=== PATIENT | female | born 1975 | race Caucasian/White ===

== ENCOUNTER 2016-05-31 09:04 | Emergency (ER) | payer OTHER ==
[2016-05-31 10:24] LABS: ABSOLUTE LYMPHOCYTES (AUTO) 1.2 10^3/uL (0.5-4.7); ABSOLUTE MONOCYTES (AUTO) 1.3 10^3/uL (0.1-1.4); ABSOLUTE NEUT (AUTO) 9.7 10^3/uL (1.7-8.2); BASOPHILS % (AUTO) 0.2 % (0-2); EOSINOPHILS % (AUTO) 0.1 % (0-6); HEMATOCRIT 36.1 % (36.0-47.0); HEMOGLOBIN 12.2 g/dL (12.0-15.5); HGB HCT DIFFERENCE 0.5; LYMPHOCYTES % (AUTO) 9.9 % (13-45); MEAN CORPUSCULAR HEMOGLOBIN 29.1 pg (27.0-33.4); MEAN CORPUSCULAR HGB CONC 33.8 g/dL (32.0-36.0); MEAN CORPUSCULAR VOLUME 86 fl (80-97); MONOCYTES % (AUTO) 10.8 % (3-13); RED BLOOD COUNT 4.19 10^6/uL (3.72-5.28); RED CELL DISTRIBUTION WIDTH 14.1 % (11.5-14.0); WHITE BLOOD COUNT 12.2 10^3/uL (4.0-10.5)
[2016-05-31] MEDS ORDERED: ASPIRIN 81 MG TABLET, CHEWABLE PO ONE (10:36)
[2016-05-31 10:37] LABS: ALANINE AMINOTRANSFERASE 51 U/L (9-52); ALBUMIN 3.8 g/dL (3.5-5.0); ALKALINE PHOSPHATASE 69 U/L (38-126); ANION GAP 10 (5-19); ASPARTATE AMINO TRANSFERASE 40 U/L (14-36); BILIRUBIN,TOTAL 0.9 mg/dL (0.2-1.3); BLOOD UREA NITROGEN 10 mg/dL (7-20); CARBON DIOXIDE 33 mmol/L (22-30); CHLORIDE 94 mmol/L (98-107); CREATININE RESULT 0.53 mg/dL (0.52-1.25); GLUCOSE 117 mg/dL (75-110); POTASSIUM 3.8 mmol/L (3.6-5.0); SODIUM 137.4 mmol/L (137-145)
[2016-05-31 10:38] LABS: APPEARANCE,URINE CLEAR; BILIRUBIN,URINE NEGATIVE (NEGATIVE); GLUCOSE, URINE NEGATIVE (NEGATIVE); KETONES,URINE NEGATIVE (NEGATIVE); LEUKOCYTE ESTERASE,URINE LARGE (NEGATIVE); NITRITE,URINE NEGATIVE (NEGATIVE); PROTEIN,URINE NEGATIVE (NEGATIVE); URINE SPECIFIC GRAVITY 1.004; UROBILINOGEN,URINE NEGATIVE mg/dL (<2.0)
[2016-05-31 11:00] LABS: CREATINE KINASE MB 4.75 ng/mL (<4.55); TROPONIN I < 0.012 ng/mL
--- NOTE | 2016-05-31 12:20 | EKG REPORT ---
SEVERITY:- ABNORMAL ECG - SINUS RHYTHM NONSPECIFIC INTRAVENTRICULAR CONDUCTION DELAY INFERIOR Q WAVES, POSSIBLE INFERIOR MD VS PROBABLY NORMAL VARIATION : Confirmed by: Linda Reynoso 31-May-2016 12:19:58
--- NOTE | 2016-05-31 13:14 | ER Document Report ---
ED General - General Chief Complaint: Pain With Urination Stated Complaint: POSSIBLE UTI Mode of Arrival: Ambulatory Information source: Patient Notes: 40 y/o F presents to ED with multiple complaints. Pt reports onset of cough/ congestion/flu-like symptoms approximately 1 month ago. States URI symptoms resolved but cough has persisted. Reports associated burning-type substernal pain with cough and sob. States cough is productive with small amount of white and greenish sputum. Also reports dysuria and fever over the last 3 days with Tmax at home of 102.0. States feels like her previous UTI. Denies chest pain without cough, n/v, hemoptysis, vaginal bleeding or discharge. TRAVEL OUTSIDE OF THE [place] IN LAST 30 DAYS: No - HPI Onset/Duration: Persistent, Worse Quality of pain: Burning Severity: Mild Pain Level: 2 Similar symptoms previously: Yes Recently seen / treated by doctor: No - Related Data Allergies/Adverse Reactions: albuterol [Albuterol] Allergy (Verified 05/31/16 09:22) prednisone [Prednisone] Allergy (Verified 05/31/16 09:22) Past Medical History - General Information source: Patient, Relative - Social History Smoking Status: Never Smoker Frequency of alcohol use: None Drug Abuse: None Lives with: Family Family History: Reviewed & Not Pertinent - Past Medical History Cardiac Medical History: Reports: Hx Hypertension Pulmonary Medical History: Reports: Hx Asthma Endocrine Medical History: Reports: Hx Hypothyroidism GI Medical History: Reports: Hx Gastroesophageal Reflux Disease Past Surgical History: Reports: Hx Section - x3, Hx Tubal Ligation - Immunizations Hx Diphtheria, Pertussis, Tetanus Vaccination: Yes Review of Systems - Review of Systems Constitutional: See HPI EENT: No symptoms reported Cardiovascular: See HPI Respiratory: See HPI Gastrointestinal: No symptoms reported Genitourinary: See HPI Female Genitourinary: No symptoms reported Musculoskeletal: No symptoms reported Skin: No symptoms reported Hematologic/Lymphatic: No symptoms reported Neurological/Psychological: No symptoms reported -: Yes All other systems reviewed and negative Physical Exam - Vital signs Vitals: Temp Pulse Resp BP Pulse Ox 98.7 F 96 20 151/77 H 97 05/31/16 09:19 05/31/16 09:19 05/31/16 09:19 05/31/16 09:19 05/31/16 09:19 Interpretation: Normal - General General appearance: Appears well, Alert In distress: None - HEENT Head: Normocephalic, Atraumatic Eyes: Normal Pupils: PERRL - Respiratory Respiratory status: No respiratory distress. No: Labored, Tachypnea Chest status: Nontender, Pain with cough Breath sounds: Normal - CTAB, Nonproductive cough. No: Rhonchi, Wheezing Chest palpation: Normal - Cardiovascular Rhythm: Regular Heart sounds: Normal auscultation Murmur: No Pulses: Normal: Radial Normal capillary refill: Yes - Abdominal Inspection: Normal, Morbidly Obese Distension: No distension Bowel sounds: Normal Tenderness: Nontender Organomegaly: No organomegaly - Back Back: Normal, Nontender - Extremities General upper extremity: Normal inspection, Nontender, Normal color, Normal ROM , Normal strength, Normal temperature. No: Tender, Edema General lower extremity: Normal inspection, Nontender, Normal color, Normal ROM , Normal strength, Normal temperature, Normal weight bearing. No: Tender, Edema , Zain's sign - Neurological Neuro grossly intact: Yes Cognition: Normal Orientation: AAOx4 [place] Coma Scale Eye Opening: Spontaneous [place] Coma Scale Verbal: Oriented [place] Coma Scale Motor: Obeys Commands [place] Coma Scale Total: 15 Speech: Normal Motor strength normal: LUE, RUE, LLE, RLE Sensory: Normal - Psychological Associated symptoms: Normal affect, Normal mood - Skin Skin Temperature: Warm Skin Moisture: Dry Skin Color: Normal Skin Turgor: Elastic Course - Re-evaluation Re-evalutation: 05/31/16 15:00 Patient hemodynamically stable, in no distress, afebrile. Chest x-ray shows cardiomegaly and probable vascular congestion without suggestion of pneumonia or other significant findings. Due to elevated d-dimer and patient history/risk factors patient presentation and findings were discussed with ED physician Dr. Ivey who recommends CTA chest to rule out PE. Due to patient's morbid obesity and body habitus there is no capability of obtaining CT scan, VQ scan, or MRI at this facility therefore [facility] and [facility] were contacted however they did not have bariatric capability at this time. Patient presentation and findings were discussed with hospitalist Dr. Lloyd who agrees to resume care of patient at this time and admit to telemetry observation unit. Findings and plan discussed with patient and who verbalized understanding and agree with plan. - Vital Signs Vital signs: Temp Pulse Resp BP Pulse Ox 98.4 F 96 28 H 130/81 H 92 05/31/16 16:51 05/31/16 09:19 05/31/16 16:01 05/31/16 16:01 05/31/16 15:57 - Laboratory Result Diagrams: 05/31/16 10:00 05/31/16 10:00 Laboratory results interpreted by me: 05/31/16 05/31/16 05/31/16 10:00 10:00 10:00 WBC 12.2 H RDW 14.1 H Seg Neutrophils % 79.0 H Lymphocytes % 9.9 L Absolute Neutrophils 9.7 H D-Dimer Chloride 94 L Carbon Dioxide 33 H Glucose 117 H AST 40 H Creatine Kinase CK-MB (CK-2) NT-Pro-B Natriuret Pep Ur Leukocyte Esterase LARGE H 05/31/16 05/31/16 05/31/16 10:00 10:00 10:00 WBC RDW Seg Neutrophils % Lymphocytes % Absolute Neutrophils D-Dimer 0.83 H Chloride Carbon Dioxide Glucose AST Creatine Kinase 286 H CK-MB (CK-2) 4.75 H NT-Pro-B Natriuret Pep Ur Leukocyte Esterase 05/31/16 10:00 WBC RDW Seg Neutrophils % Lymphocytes % Absolute Neutrophils D-Dimer Chloride Carbon Dioxide Glucose AST Creatine Kinase CK-MB (CK-2) NT-Pro-B Natriuret Pep 334 H Ur Leukocyte Esterase - Diagnostic Test Radiology reviewed: Image reviewed, Reports reviewed - EKG Interpretation by Me EKG shows normal: Sinus rhythm Rate: Normal When compared to previous EKG there are: Previous EKG unavailable Discharge - Discharge Clinical Impression: SOB (shortness of breath), Dysuria Condition: Stable Disposition: ADMITTED OBSERVATION Admitting Provider: [facility] Unit Admitted: Telemetry
[2016-05-31] MEDS ORDERED: LEVOFLOXACIN 750 MG/D5W RTU 750 MG/150 ML RTUPB IV ONE ×2 (14:13→15:15)
--- NOTE | 2016-05-31 15:37 | PDOC CONSULTATION ---
Consultation Consult Date: 05/31/16 Attending physician:: EUGENIA RODRIGUEZ Consult reason:: UTI and cough with shortness of breath History of Present Illness Admission Date/PCP: 05/31/16 13:43 Patient complains of: Urinary frequency and cough History of Present Illness: TIFFANY OMALLEY is a 40 year old female who presents to [place] Emergency Department with 3 days of urinary burning and frequency. Prior to this she had a 2 days episode of nausea, vomiting and diarrhea that her children also had. She states the week prior to that she had an upper respiratory infection and has continued to cough. She has been using her Xopenex nebulizer more frequently. She states her chest hurts at times to take a deep breath. She does not smoke, she denies chest pain or lower extremity edema. She has had low grade fever and chills for the last 2 days as well. She denies any other complaints. Past Medical History Cardiac Medical History: Reports: Hypertension Pulmonary Medical History: Reports: Asthma EENT Medical History: Reports: None Neurological Medical History: Reports: None Endocrine Medical History: Reports: None Renal/ Medical History: Reports: None Malignancy Medical History: Reports: None GI Medical History: Reports: None Musculoskeltal Medical History: Reports: None Psychiatric Medical History: Reports: None Traumatic Medical History: Reports: None Hematology: Reports: None Infectious Medical History: Reports: None Past Surgical History Past Surgical History: Reports: Section - x3, Tubal Ligation Social History Information Source: Patient Lives with: Family, Spouse/Significant other Smoking Status: Never Smoker Frequency of Alcohol Use: None Hx Recreational Drug Use: No Drugs: None Hx Prescription Drug Abuse: No Family History Family History: DM, Hypertension Parental Family History Reviewed: Yes Children Family History Reviewed: Yes Sibling(s) Family History Reviewed.: Yes Medication/Allergy Home Medications: Hydrocodone Bit/Acetaminophen [Lortab 5-500 Tablet] 1 tab PO Q6 PRN #10 tablet 05/09/12 Ondansetron [Zofran Odt 4 mg Tablet] 1 - 2 tab PO Q4H #10 tab.rapdis 05/09/12 Diazepam [Valium 5 mg Tablet] 5 mg PO QID #30 tablet 01/16/15 Tramadol HCl [Ultram] 50 mg PO Q6 PRN #30 tablet 01/16/15 Levofloxacin [Levaquin 750 mg Tablet] 750 mg PO DAILY #7 tablet 05/31/16 Allergies/Adverse Reactions: albuterol [Albuterol] Allergy (Verified 05/31/16 09:22) prednisone [Prednisone] Allergy (Verified 05/31/16 09:22) Review of Systems Constitutional: PRESENT: chills Eyes: PRESENT: as per HPI Ears: ABSENT: hearing changes Cardiovascular: ABSENT: chest pain, dyspnea on exertion, edema, orthropnea, palpitations Respiratory: PRESENT: cough, dyspnea, sputum Gastrointestinal: ABSENT: abdominal pain, constipation, diarrhea, hematemesis, hematochezia, nausea, vomiting Genitourinary: PRESENT: difficulty urinating, dysuria Musculoskeletal: ABSENT: joint swelling Integumentary: PRESENT: as per HPI Neurological: PRESENT: as per HPI Psychiatric: ABSENT: anxiety, depression, homidical ideation, suicidal ideation Endocrine: ABSENT: cold intolerance, heat intolerance, polydipsia, polyuria Hematologic/Lymphatic: ABSENT: easy bleeding, easy bruising Physical Exam Vital Signs: Temp Pulse Resp BP Pulse Ox 98.7 F 96 23 H 137/62 H 97 05/31/16 09:19 05/31/16 09:19 05/31/16 15:00 05/31/16 13:06 05/31/16 15:00 General appearance: PRESENT: no acute distress, morbidly obese, well-developed, well-nourished Head exam: PRESENT: atraumatic, normocephalic Eye exam: PRESENT: conjunctiva pink, EOMI, PERRLA. ABSENT: scleral icterus Ear exam: PRESENT: normal external ear exam Mouth exam: PRESENT: moist, tongue midline Neck exam: ABSENT: carotid bruit, JVD, lymphadenopathy, thyromegaly Respiratory exam: PRESENT: clear to auscultation marshal, decreased breath sounds, symmetrical, unlabored Cardiovascular exam: PRESENT: RRR. ABSENT: diastolic murmur, rubs, systolic murmur Pulses: PRESENT: normal carotid pulses, normal radial pulses Vascular exam: PRESENT: normal capillary refill GI/Abdominal exam: PRESENT: normal bowel sounds, soft. ABSENT: distended, guarding, mass, organolmegaly, rebound, tenderness Rectal exam: PRESENT: deferred Extremities exam: PRESENT: full ROM. ABSENT: calf tenderness, clubbing, pedal edema Musculoskeletal exam: PRESENT: ambulatory Neurological exam: PRESENT: alert, awake, oriented to person, oriented to place , oriented to time, oriented to situation, CN II-XII grossly intact. ABSENT: motor sensory deficit Psychiatric exam: PRESENT: appropriate affect, normal mood. ABSENT: homicidal ideation, suicidal ideation Results Impressions: Chest X-Ray 05/31/16 10:21 IMPRESSION: Limited, as above. Assessment & Plan - Diagnosis (1) UTI (urinary tract infection) Qualifiers: Urinary tract infection type: site unspecified Hematuria presence: without hematuria Qualified Code(s): N39.0 - Urinary tract infection, site not specified Is this a current diagnosis for this admission?: YesPlan: Patient will be given one dose IV Levaquin here and then given a prescription for the next 7 days (2) Cough Is this a current diagnosis for this admission?: YesPlan: Patient with recent upper respiratory infection with continued cough most likely viral origin as 2 of her children had the same symptoms as well. She will continue xopenex treatments and get Mucinex otc (3) Dysuria Is this a current diagnosis for this admission?: YesPlan: UTI. Urinalysis with large amount of leucocytes, moderate blood negative nitrates (4) SOB (shortness of breath) Is this a current diagnosis for this admission?: YesPlan: Likely due to bronchiectasis and super morbid obesity. Patient's chest xray shows no infiltrates or effusions. She is saturating at 96% on room air - Time Time Spent: 50 to 70 Minutes Critical Time spent with patient: 25-34 minutes Medications reviewed and adjusted accordingly: Yes Anticipated discharge: Home - Plan Summary Plan Summary: Patient will be discharged home on antibiotics. She will follow up here or with her primary care provider if her symptoms worsen or do not improve.
[2016-05-31 16:25] VITALS: BP 130/81
[2016-06-01] MEDS ORDERED: LEVOFLOXACIN 750 MG/D5W RTU 750 MG/150 ML RTUPB IV SCH (10:00)
== END 2016-05-31 16:52 | disposition admitted as inpatient to this hospital (09) ==
LOC: ER 09:04 → EH 13:43 → UNDOADMIN 13:43 → UNDODISIN 16:52 → EH 16:52
DX: N39.0 Urinary tract infection, site not specified (principal); R05 Cough; R06.02 Shortness of breath; R30.0 Dysuria; R68.89 Other general symptoms and signs; R10.13 Epigastric pain; R50.9 Fever, unspecified; E66.01 Morbid (severe) obesity due to excess calories; I10 Essential (primary) hypertension; J45.909 Unspecified asthma, uncomplicated; E03.9 Hypothyroidism, unspecified; K21.9 Gastro-esophageal reflux disease without esophagitis; Z98.51 Tubal ligation status
CPT/HCPCS: 93005; 99284; 36415; 87086; 82553; 82550; 84703; 85025; 87088; 80053; 81001; 84484; 87186; 85379; 83880; 71020; 93010; J1956